=== PATIENT | male | born 1960 | race Caucasian/White ===

== ENCOUNTER 2017-07-05 13:47 | Emergency (ER) | payer MEDICARE, OTHER ==
[~2017-07-05] VITALS: Ht 177.8 cm; Wt 102.4 kg
[~2017-07-05 13:47] MED LIST: ASPI81TA82 PO; MYCO360 PO; TACR1
[2017-07-05 13:56] VITALS: BP 173/98; PULSE 71; RESP 18; TEMP 98.7; O2SAT 97
[2017-07-05] MEDS ORDERED: TACR5CAP PO (14:08)
[2017-07-05] MEDS ORDERED: VENTAER INH (14:08)
[2017-07-05] MEDS ORDERED: SYMB160A INH (14:08)
[2017-07-05] MEDS ORDERED: MYCO1TAB2 PO (14:08)
[2017-07-05 14:52] LABS: AUTOMATED NEUTROPHIL # 3.4 TH/MM3 (1.8-7.7); BASOPHIL % 0.6 % (0.0-2.0); EOSINOPHIL # 0.1 TH/MM3 (0-0.4); EOSINOPHIL % 3.2 % (0.0-4.0); HEMATOCRIT 41.9 % (39.0-51.0); HEMOGLOBIN 14.2 GM/DL (13.0-17.0); LYMPH % 12.2 % (9.0-44.0); LYMPHOCYTE # 0.5 TH/MM3 (1.0-4.8); MEAN CELL VOLUME 109.1 FL (80.0-100.0); MEAN CORPUSCULAR HGB CONC 33.9 % (32.0-36.0); MEAN PLATELET VOLUME 8.9 FL (7.0-11.0); MONOCYTE # 0.3 TH/MM3 (0-0.9); PLATELET COUNT 146 TH/MM3 (150-450); RED BLOOD COUNT 3.84 MIL/MM3 (4.50-5.90); WHITE BLOOD COUNT 4.3 TH/MM3 (4.0-11.0)
--- NOTE | 2017-07-05 14:57 | PD ---
HPI Chief Complaint: Skin Problem Time Seen by Provider: 14:18 Travel History International Travel<30 days: No Contact w/Intl Traveler<30days: No Traveled to known affect area: No History of Present Illness HPI This is a 56-year-old male with history of renal transplant 2006 on immunosuppressants with possible infection over the right elbow. He denies fever or chills. He reports approximately one month ago he developed a small break in the skin over the elbow where he had a large callus. He then developed painless swelling of the elbow. [facility] and started on antibiotics. He is unsure of the antibiotic but reports the area spontaneously drained clear yellow fluid and the swelling reduced. He reports this morning he awoke with right elbow swelling and came in for evaluation. He reports no pain currently. The area spontaneously drained clear yellow fluid from the wound which decreased his discomfort immediately. Symptoms severity is mild. Aggravated by palpating the area. He has full range of motion of the elbow. PFSH Past Medical History Narrative Medical Polycystic renal disease with kidney transplant, COPD, [place] Cancer: No Cardiovascular Problems: Yes (NH 2011) COPD: Yes Diminished Hearing: No Endocrine: No Genitourinary: Yes Hypertension: Yes Musculoskeletal: No Neurologic: No Renal Failure: Yes (TRANSPLANT 2006) Sleep Apnea: Yes Tetanus Vaccination: > 5 Years Influenza Vaccination: No ?: Not Past Surgical History Abdominal Surgery: No Cardiac Surgery: Yes (CATH) Ear Surgery: No Endocrine Surgery: No Eye Surgery: No Genitourinary Surgery: No Gynecologic Surgery: No Oral Surgery: No Thoracic Surgery: No Other Surgery: Yes (bilateral nephrectomy with transplant 2006) Social History Alcohol Use: Yes (SOCIALLY) Tobacco Use: Yes (1/2) Substance Use: No Allergies-Medications (Allergen,Severity, Reaction): Uncoded Allergies: GORE NEGRITA (Allergy, Unknown, 01/01/16) Reported Meds & Prescriptions Reported Meds & Active Scripts Active Keflex (Cephalexin) 500 Mg Capsule 500 Mg PO Q6H 14 Days Bactrim DS (Sulfamethoxazole-Trimethoprim) 800-160 Mg Tab 1 Tab PO BID 14 Days Reported Ventolin Hfa 18 GM Inh (Albuterol Sulfate) 90 Mcg/Act Aer 1 Puff INH Q4H PRN Symbicort Inh (Budesonide/Formoterol Fumarate) 160-4.5 Mcg/Act Aero 2 Puff INH Q12HR Tacrolimus 5 Mg Cap 5 Mg PO Q12H Mycophenolic Acid (Mycophenolate Sodium) 360 Mg Tab 1 Mg PO BID Review of Systems Except as stated in HPI: all other systems reviewed are Neg General / Constitutional: No: Fever Eyes: No: Visual changes HENT: No: Headaches Cardiovascular: No: Chest Pain or Discomfort Respiratory: No: Shortness of Breath Gastrointestinal: No: Abdominal Pain Genitourinary: No: Dysuria Musculoskeletal: No: Pain Physical Exam Narrative GENERAL: Alert and well-appearing 56-year-old male SKIN: 0.5 cm open shallow wound over the R olecranon HEAD: Normocephalic. EYES: No scleral icterus. No injection or drainage. NECK: Supple, trachea midline. No JVD or lymphadenopathy. CARDIOVASCULAR: Regular rate and rhythm without murmurs, gallops, or rubs. RESPIRATORY: Breath sounds equal bilaterally. No accessory muscle use. GASTROINTESTINAL: Abdomen soft, non-tender, nondistended. MUSCULOSKELETAL: No cyanosis. Right upper extremity: 0.5 cm open wound over the R olecranon with surrounding very faint erythema. + Swelling of the olecranon bursa. No warmth. No tenderness. Patient can flex and extend the elbow without difficulty. 2+ distal pulses. Brisk cap refill. BACK: Nontender without obvious deformity. No CVA tenderness. Data Data Last Documented VS Vital Signs Date Time Temp Pulse Resp B/P (MAP) Pulse Ox O2 Delivery O2 Flow Rate FiO2 07/05/17 13:56 98.7 71 18 173/98 (123) 97 Orders Orders Basic Metabolic Panel (Bmp) (07/05/17 14:24) Complete Blood Count With Diff (07/05/17 14:24) Blood Culture (07/05/17 14:24) Wound Culture And Gram Stain (07/05/17 14:24) Iv Access Insert/Monitor (07/05/17 14:24) Lactic Acid Sepsis Protocol (07/05/17 14:24) Elbow, Complete (4 Vws) (07/05/17 ) Prothrombin Time / Inr (Pt) (07/05/17 14:28) Act Partial Throm Time (Ptt) (07/05/17 14:28) Labs Laboratory Tests Test 07/05/17 14:30 White Blood Count 4.3 TH/MM3 Red Blood Count 3.84 MIL/MM3 Hemoglobin 14.2 GM/DL Hematocrit 41.9 % Mean Corpuscular Volume 109.1 FL Mean Corpuscular Hemoglobin 37.0 PG Mean Corpuscular Hemoglobin Concent 33.9 % Red Cell Distribution Width 13.0 % Platelet Count 146 TH/MM3 Mean Platelet Volume 8.9 FL Neutrophils (%) (Auto) 76.0 % Lymphocytes (%) (Auto) 12.2 % Monocytes (%) (Auto) 8.0 % Eosinophils (%) (Auto) 3.2 % Basophils (%) (Auto) 0.6 % Neutrophils # (Auto) 3.4 TH/MM3 Lymphocytes # (Auto) 0.5 TH/MM3 Monocytes # (Auto) 0.3 TH/MM3 Eosinophils # (Auto) 0.1 TH/MM3 Basophils # (Auto) 0.0 TH/MM3 CBC Comment DIFF FINAL Differential Comment Blood Urea Nitrogen 19 MG/DL Creatinine 0.93 MG/DL Random Glucose 98 MG/DL Calcium Level 8.7 MG/DL Sodium Level 139 MEQ/L Potassium Level 4.1 MEQ/L Chloride Level 106 MEQ/L Carbon Dioxide Level 25.7 MEQ/L Anion Gap 7 MEQ/L Estimat Glomerular Filtration Rate 84 ML/MIN Lactic Acid Level 0.8 mmol/L MDM Medical Decision Making Medical Screen Exam Complete: Yes Emergency Medical Condition: Yes Differential Diagnosis Bursitis, Cellulitis, unlikely septic joint Narrative Course 56-year-old male with recurrent inflamed bursa to the right olecranon. His been ongoing for month. He reports symptom improvement since last night. No fever or chills. Nontoxic appearing. CBC shows no leukocytosis. Lactic acid 0.8. Blood cultures and wound culture pending. X-ray shows no joint effusion but nonspecific slight soft tissue swelling over the olecranon. The case was discussed findings physician Dr. Joy who evaluated the patient himself. He agrees that this appears to be noninfectious olecranon bursitis with small open wound of the elbow. Given his history he will be put on antibiotics and instructed to follow-up with orthopedist. Strict return precautions were discussed. This was discussed at length with patient who agrees to this plan. Per patient's request he would like to not be admitted. Diagnosis Primary Impression: Bursitis Qualified Codes: M70.21 - Olecranon bursitis, right elbow Referrals: Maria Ines Rowley MD, Srinivasa MD Orthopedist Additional Instructions: Antibiotic as directed. Follow-up with orthopedic Return to emergency department if he developed new or worsening symptoms. This would include fever, chills, increasing pain, increasing redness. Scripts Cephalexin (Keflex) 500 Mg Capsule 500 MG PO Q6H for Infection for 14 Days, #56 CAP 0 Refills Prov: Nano Horton 07/05/17 Sulfamethoxazole-Trimethoprim (Bactrim DS) 800-160 Mg Tab 1 TAB PO BID for Infection for 14 Days, #28 TAB 0 Refills Prov: Nano Horton 07/05/17 Disposition: 01 DISCHARGE HOME Condition: Stable Nano Horton Jul 05, 2017 14:57
[2017-07-05 15:03] LABS: BICARBONATE 25.7 MEQ/L (21.0-32.0); CALCIUM 8.7 MG/DL (8.5-10.1)
[2017-07-05 15:07] LABS: CREATININE 0.93 MG/DL (0.60-1.30)
--- NOTE | 2017-07-05 15:18 | RADRPT ---
EXAM DATE/TIME: 07/05/2017 14:56 [facility] COMPARISON: No previous studies available for comparison. INDICATIONS : Right elbow pain and swelling. No known injury. Patient states there was an opening on his skin that started to swell and drained today. MEDICAL HISTORY : None. SURGICAL HISTORY : None. ENCOUNTER: Initial ACUITY: 1 month PAIN SCORE: 2/10 LOCATION: Right elbow. FINDINGS: Multiple view examination of the right elbow demonstrates no joint effusion, or fracture. There is so ft tissue swelling along the olecranon process. The osseous structures are in normal alignment. Bony mineralization is normal. A few small surgical clips are seen in the soft tissues. Otherwise, no oth er foreign bodies are seen. CONCLUSION: Nonspecific soft tissue swelling along the olecranon process. Fernie Whiteside MD on July 05, 2017 at 15:14 Board Certified Radiologist. This report was verified electronically.
[2017-07-05] MEDS ORDERED: CEPH-460 PO (15:40)
[2017-07-05] MEDS ORDERED: BACT800T5 PO (15:40)
[2017-07-05 16:11] LABS: PROTHROMBIN TIME - PATIENT 10.4 SEC (9.8-11.6)
== END 2017-07-05 16:26 | disposition home or self-care (01) ==
LOC: PHEFT 13:47
DX: M70.21 Olecranon bursitis, right elbow (principal); I12.9 Hypertensive chronic kidney disease with stage 1 through stage 4 chronic kidney disease, or unspecified chronic kidney disease; N18.9 Chronic kidney disease, unspecified; G47.30 Sleep apnea, unspecified; J44.9 Chronic obstructive pulmonary disease, unspecified; I25.2 Old myocardial infarction; F17.200 Nicotine dependence, unspecified, uncomplicated; Z94.0 Kidney transplant status
CPT/HCPCS: 73080; 80048; 83605; 85025; 85610; 85730; 87040; 87070; 87205; 99284

== ENCOUNTER 2017-07-18 10:03 | Inpatient (IN) | payer MEDICARE, OTHER ==
[~2017-07-18] VITALS: Ht 177.8 cm; Wt 102.9 kg
[~2017-07-18 10:03] MED LIST changes: -ASPI81TA82 PO; +BACT800T5 PO; +CEPH-460 PO; +MYCO1TAB2 PO; -MYCO360 PO; +SYMB160A INH; -TACR1; +TACR5CAP PO; +VENTAER INH
[2017-07-18] MEDS ORDERED: SODIUM CHLORID 0.9% 500 ML IV PRN (10:45)
[2017-07-18] MEDS ORDERED: POVIDONE IODINE 5% (ANTISEPSIS KIT) 4 APPLICATIONS EACH NARE PRN (10:45)
[2017-07-18] MEDS ORDERED: METOPROLOL TARTRATE 25 MG TAB PO PRN (10:45)
[2017-07-18] MEDS ORDERED: LACTATED RINGER'S 1000 ML IV PRN (10:45)
[2017-07-18] MEDS ORDERED: CHLORHEXIDINE GLUCONATE 2 % 1 PACK (2 CLOTHS) TOPICAL PRN (10:45)
[2017-07-18] MEDS ORDERED: INSULIN HUMAN REGULAR 1,000 UNITS/10 ML VIAL SQ PRN (10:45)
[2017-07-18] MEDS ORDERED: POVIDONE IODINE 7.5% SCRUB 118 ML BOTTLE TOPICAL SCH (11:00)
[2017-07-18 11:23] LABS: AUTOMATED NEUTROPHIL # 3.5 TH/MM3 (1.8-7.7); BASOPHIL % 0.6 % (0.0-2.0); EOSINOPHIL # 0.2 TH/MM3 (0-0.4); EOSINOPHIL % 3.7 % (0.0-4.0); HEMATOCRIT 41.5 % (39.0-51.0); HEMOGLOBIN 14.2 GM/DL (13.0-17.0); LYMPH % 13.9 % (9.0-44.0); LYMPHOCYTE # 0.7 TH/MM3 (1.0-4.8); MEAN CELL VOLUME 112.2 FL (80.0-100.0); MEAN CORPUSCULAR HEMOGLOBIN 38.5 PG (27.0-34.0); MEAN CORPUSCULAR HGB CONC 34.3 % (32.0-36.0); MONO % 8.8 % (0.0-8.0); MONOCYTE # 0.4 TH/MM3 (0-0.9); PLATELET COUNT 180 TH/MM3 (150-450); RED CELL DISTRIBUTION WIDTH 13.8 % (11.6-17.2); WHITE BLOOD COUNT 4.8 TH/MM3 (4.0-11.0)
[2017-07-18 11:30] LABS: ALKALINE PHOSPHATASE 73 U/L (45-117); TOTAL BILIRUBIN ADULT 0.2 MG/DL (0.2-1.0); TOTAL PROTEIN 7.1 GM/DL (6.4-8.2)
[2017-07-18 11:43] LABS: ALBUMIN 3.5 GM/DL (3.4-5.0); ALT (GPT) 29 U/L (12-78); AST (GOT) 21 U/L (15-37); BLOOD UREA NITROGEN 18 MG/DL (7-18); CALCIUM 8.7 MG/DL (8.5-10.1); CHLORIDE 108 MEQ/L (98-107); CREATININE 1.15 MG/DL (0.60-1.30); GLOMERULAR FILTRATION RATE 66 ML/MIN (>89); GLUCOSE,RANDOM 103 MG/DL (74-106); SODIUM (NA) 139 MEQ/L (136-145)
[2017-07-18] MEDS ORDERED: LIDOCAINE HCL 1% PF 5 ML SYRINGE OTHER ONE (12:00)
[2017-07-18] MEDS ORDERED: PROPOFOL 200 MG/20 ML AMP IV ONE (12:00)
[2017-07-18] MEDS ORDERED: GENTAMICIN SULFATE 80 MG/2 ML VIAL ONE (13:26)
[2017-07-18] MEDS ORDERED: BUPIVACAINE HCL PF 0.5% 30 ML VIAL ONE (13:36)
[2017-07-18] MEDS ORDERED: PROPOFOL 200 MG/20 ML AMP ONE (14:14)
[2017-07-18] MEDS ORDERED: ceFAZolin INJ 1,000 MG VIAL ONE (14:37)
[2017-07-18] MEDS: DEXT 5%-NACL 0.45% 1000 ML INJ 1,000 ML IV SCH (15:13)
[2017-07-18] MEDS ORDERED: DO NOT ADM ANY ANTICOAGULANT DRUGS PRN (15:14)
[2017-07-18] MEDS ORDERED: diphenhydrAMINE HCL 25 MG CAP PO PRN (15:15)
[2017-07-18] MEDS ORDERED: NALOXONE HCL 0.4 MG/ML AMP IV PUSH PRN (15:15)
[2017-07-18] MEDS ORDERED: Post-op Orders (for Pharmacy) XX ONE (15:15)
[2017-07-18] MEDS ORDERED: ALBUTEROL SULFATE 90 MCG/ACT HFA 8 GM INHALER INH PRN (15:15)
[2017-07-18] MEDS ORDERED: traMADol HCL 50 MG TAB PO PRN ×2 (15:15→16:15)
--- NOTE | 2017-07-18 15:37 | MP ---
cc: Leonel Doan MD DATE OF OPERATION: 07/18/2017 PREOPERATIVE DIAGNOSIS: Infected olecranon bursa, right elbow. POSTOPERATIVE DIAGNOSIS: Infected olecranon bursa, right elbow. OPERATIVE PROCEDURE: 1. Excision olecranon bursa, right elbow. 2. Debridement. 3. Application of wound vacuum-assisted closure. SURGEON: Leonel Doan MD ANESTHESIA: Axillary block. TECHNIQUE: After induction of axillary block, patient was brought to the operating room where he had a right elbow and right upper extremity thoroughly prepped with Hibiclens and draped in routine fashion. A vertical incision was made on the back of the elbow over the olecranon extending 4 cm proximal and distal to the sinus tract, and the sinus tract was excised full thickness. Skin flaps were raised, and the olecranon bursa was excised in toto. Part of the bursa resection sent for microbiology for Gram stain, culture, aerobic, anaerobic, AFB and fungal. The rest was sent to pathology in formalin. The wound was irrigated with saline solution, followed by application of wound VAC. Wound VAC was noted to be functioning well when we got done. The patient tolerated the procedure well. COMPLICATIONS: None. POSTOPERATIVE CONDITION: Satisfactory. PROGNOSIS: Depending on the microbiology results, I may bring him back to the OR as early as Tuesday afternoon to do a secondary closure. MD COLEEN Winkler/ARI , 03:22 PM , 03:36 PM
[2017-07-18] MEDS: CLINDAMYCIN INJ 600 MG in SODIUM CHLORIDE 0.9% INJ 50 ML IV SCH ×2 (19:01→23:29)
[2017-07-18] MEDS: TACROLIMUS 5 MG CAP PO SCH (19:01)
[2017-07-18 20:00] VITALS: BP 149/87; PULSE 69; RESP 18; TEMP 98.1; O2SAT 93
[2017-07-18] MEDS ORDERED: MYCOPHENOLATE SODIUM 360 MG DELAYED RELEASE TAB PO SCH (21:00)
[2017-07-18] MEDS: DOCUSATE SODIUM 50 MG/SENNA 8.6 MG TAB PO SCH (21:07)
--- NOTE | 2017-07-18 22:46 | EKG ---
Date Performed: 07/18/2017 Time Performed: 10:27:40 PTAGE: 56 years EKG: Sinus rhythm MARKED LEFT AXIS DEVIATION NONSPECIFIC ST ELEVATION ABNORMAL ECG PREVIOUS TRACING : 07/18/2011 16.23 Since the previous tracing, no significant change noted DOCTOR: Yi Middleton Interpretating Date/Time 07/18/2017 22:45:36
[2017-07-18] MEDS: BUDESONIDE-FORMOTEROL 160/4.5 MCG INHALER INH SCH (23:23)
[2017-07-19] VITALS: BP 127/76; PULSE 63; RESP 18; TEMP 97.8; O2SAT 92
[2017-07-19] MEDS: DEXT 5%-NACL 0.45% 1000 ML INJ 1,000 ML IV SCH ×3 (05:13→20:14)
[2017-07-19] MEDS: TACROLIMUS 5 MG CAP PO SCH ×2 (05:13→17:59)
--- NOTE | 2017-07-19 07:56 | PD.ORT.PN ---
Subjective Post Op Day #: 1 Pain Scale: 0 Subjective Remarks numbneess getting better Range of Motion good Objective Vitals Vital Signs Date Time Temp Pulse Resp B/P (MAP) Pulse Ox O2 Delivery O2 Flow Rate FiO2 07/19/17 00:00 97.8 63 18 127/76 (93) 92 07/18/17 20:00 98.1 69 18 149/87 (107) 93 07/18/17 16:30 97.1 61 16 136/79 (98) 92 Nasal Cannula 2 07/18/17 16:15 60 12 134/77 (96) 95 Nasal Cannula 2 07/18/17 16:00 61 12 125/74 (91) 93 Nasal Cannula 2 07/18/17 15:45 61 12 138/64 (88) 91 Nasal Cannula 2 07/18/17 15:30 64 12 122/64 (83) 91 Nasal Cannula 2 07/18/17 15:14 97.1 73 16 122/64 (83) 91 Nasal Cannula 2 07/18/17 11:05 98.5 68 16 178/97 (124) 100 I/O 07/18/17 07/18/17 07/18/17 07/19/17 07/19/17 07/19/17 07:00 15:00 23:00 07:00 15:00 23:00 Intake Total 200 ml 1000 ml Output Total 0 ml Balance 200 ml 1000 ml Intake IV Total 200 ml 1000 ml Output Drainage Total 0 ml Result Diagram: 07/18/17 1055 07/18/17 1055 Objective Remarks A,A, and O Dressings intact, VAC working Assessment & Plan Ortho Post Op Day #: 1 Problem List: Assessment and Plan Check micro at 24 hours Decide return to OR after that Leonel Doan MD Jul 19, 2017 07:56
[2017-07-19 08:00] VITALS: BP 130/79; PULSE 66; RESP 18; TEMP 97.9; O2SAT 94
[2017-07-19] MEDS: BUDESONIDE-FORMOTEROL 160/4.5 MCG INHALER INH SCH ×2 (08:32→20:14)
[2017-07-19] MEDS: CLINDAMYCIN INJ 600 MG in SODIUM CHLORIDE 0.9% INJ 50 ML IV SCH ×2 (08:33→15:16)
[2017-07-19] MEDS: DOCUSATE SODIUM 50 MG/SENNA 8.6 MG TAB PO SCH ×2 (08:34→20:13)
[2017-07-19 12:00] VITALS: BP 146/84; PULSE 69; RESP 18; TEMP 98.6; O2SAT 97
[2017-07-19] MEDS: MYCOPHENOLATE SODIUM 360 MG DELAYED RELEASE TAB PO SCH ×2 (12:17→20:13)
[2017-07-19 16:00] VITALS: BP_SYST 126; BP_DIAS 70; BP_DIAS 82; PULSE 64; PULSE 71; RESP 18; TEMP 98.1; TEMP 98.6; O2SAT 96
[2017-07-19] MEDS: ACETAMINOPHEN/HYDROcodone 325 MG/5 MG TAB PO PRN ×2 (17:13→23:30)
[2017-07-19 20:00] VITALS: BP 127/77; PULSE 68; RESP 18; TEMP 97.8; O2SAT 97
[2017-07-20] VITALS: BP 131/82; PULSE 67; RESP 18; TEMP 97.8; O2SAT 96
[2017-07-20] MEDS: CLINDAMYCIN INJ 600 MG in SODIUM CHLORIDE 0.9% INJ 50 ML IV SCH ×3 (01:55→17:33)
[2017-07-20] MEDS ORDERED: SODIUM CHLORID 0.9% 500 ML IV PRN (03:30)
[2017-07-20] MEDS ORDERED: LACTATED RINGER'S 1000 ML IV PRN (03:30)
[2017-07-20] MEDS: TACROLIMUS 5 MG CAP PO SCH ×2 (05:17→17:33)
[2017-07-20] MEDS: DEXT 5%-NACL 0.45% 1000 ML INJ 1,000 ML IV SCH ×2 (05:20→17:33)
[2017-07-20] MEDS: ACETAMINOPHEN/HYDROcodone 325 MG/5 MG TAB PO PRN ×3 (05:20→20:30)
[2017-07-20 08:00] VITALS: BP 132/78; PULSE 63; RESP 18; TEMP 97.5; O2SAT 94
[2017-07-20 08:33] LABS: HEMATOCRIT 36.7 % (39.0-51.0); HEMOGLOBIN 12.6 GM/DL (13.0-17.0); MEAN CELL VOLUME 111.9 FL (80.0-100.0); MEAN CORPUSCULAR HEMOGLOBIN 38.4 PG (27.0-34.0); MEAN CORPUSCULAR HGB CONC 34.3 % (32.0-36.0); MEAN PLATELET VOLUME 9.2 FL (7.0-11.0); PLATELET COUNT 116 TH/MM3 (150-450); RED BLOOD COUNT 3.28 MIL/MM3 (4.50-5.90); RED CELL DISTRIBUTION WIDTH 13.6 % (11.6-17.2); WHITE BLOOD COUNT 2.4 TH/MM3 (4.0-11.0)
[2017-07-20] MEDS: MYCOPHENOLATE SODIUM 360 MG DELAYED RELEASE TAB PO SCH ×2 (09:00→20:29)
[2017-07-20] MEDS: DOCUSATE SODIUM 50 MG/SENNA 8.6 MG TAB PO SCH ×2 (09:00→20:29)
[2017-07-20] MEDS: BUDESONIDE-FORMOTEROL 160/4.5 MCG INHALER INH SCH ×2 (09:01→20:33)
[2017-07-20 09:06] LABS: BICARBONATE 24.1 MEQ/L (21.0-32.0); CALCIUM 8.4 MG/DL (8.5-10.1); CREATININE 1.16 MG/DL (0.60-1.30)
[2017-07-20] MEDS ORDERED: GENTAMICIN SULFATE 80 MG/2 ML VIAL ONE (11:21)
[2017-07-20] MEDS ORDERED: DEXAMETHASONE SOD PHOS 4 MG/ML VIAL IV ONE (12:00)
[2017-07-20] MEDS ORDERED: LIDOCAINE HCL 1% PF 5 ML SYRINGE OTHER ONE (12:00)
[2017-07-20] MEDS ORDERED: PROPOFOL 200 MG/20 ML AMP IV ONE (12:00)
[2017-07-20] MEDS ORDERED: ONDANSETRON HCL 4 MG/2 ML VIAL IV ONE (12:00)
[2017-07-20] MEDS ORDERED: DO NOT ADM ANY ANTICOAGULANT DRUGS PRN (12:40)
[2017-07-20] MEDS ORDERED: ONDANSETRON HCL 4 MG/2 ML VIAL IV PUSH PRN (12:45)
[2017-07-20] MEDS ORDERED: ACETAMINOPHEN/HYDROcodone 325 MG/5 MG TAB PO PRN ×2 (12:45)
[2017-07-20] MEDS ORDERED: MORPHINE SULFATE 4 MG/ML INJ IV PUSH PRN (12:45)
[2017-07-20] MEDS ORDERED: MIDAZOLAM HCL 2 MG/2 ML VIAL ONE (12:47)
[2017-07-20] MEDS ORDERED: *morphine SULFATE 4 MG/ML PERIprocedure ONLY ONE ×2 (12:48→13:00)
[2017-07-20] MEDS ORDERED: *diphenhydrAMINE HCL 50 MG/ML VIAL PERIprocedural Use ONLY ONE (12:55)
--- NOTE | 2017-07-20 13:09 | MP ---
cc: Leonel Doan MD DATE OF OPERATION: 07/20/2017 PREOPERATIVE DIAGNOSIS: Two days post-excision of infected olecranon bursa and application of wound VAC. POSTOPERATIVE DIAGNOSIS: Two days post-excision of infected olecranon bursa and application of wound VAC. OPERATIVE PROCEDURE: Removal of wound VAC right elbow and wound closure after debridement. SURGEON: Dr. Doan ANESTHESIA: General. TECHNIQUE: After induction of general anesthesia, wound VAC was removed. The wound looks clean. The right upper extremity and the wound thoroughly prepped with Hibiclens and draped in routine fashion. Some of the unhealthy-appearing subcutaneous tissue and also entire skin edges on both sides were excised. Wound was irrigated with 500 mL of saline with gentamicin in it. Hemostasis obtained with cautery. Wound closed in a single layer of interrupted vertical mattress 3-0 nylon sutures. A 1/4-inch Hemovac drain was left in the subcutaneous space and brought out through a stab incision. Dressings were applied with Xeroform, 4 x 4's, ABD, Sof-Rol and an Yevgeniy bandage. The patient was transferred to the recovery room in satisfactory condition. The patient tolerated the procedure well. TRANSFUSIONS AND COMPLICATIONS: None. POSTOPERATIVE CONDITION: Satisfactory. PROGNOSIS: Good. The patient's culture report is negative at 48 hours of tissue obtained on Tuesday. We will continue IV antibiotics until tomorrow and then discharge him home most likely on Keflex 500 mg q. 8 hourly for a week. MD COLEEN Winkler/BISHOP , 12:48 PM , 01:08 PM
[2017-07-20 16:00] VITALS: BP 125/60; PULSE 68; RESP 18; TEMP 97.5; O2SAT 94
[2017-07-20 20:00] VITALS: BP 133/82; PULSE 52; RESP 18; TEMP 98; O2SAT 95
[2017-07-21] VITALS: BP 147/86; PULSE 63; RESP 18; TEMP 97.8; O2SAT 92
[2017-07-21] MEDS: CLINDAMYCIN INJ 600 MG in SODIUM CHLORIDE 0.9% INJ 50 ML IV SCH ×3 (01:13→17:00)
[2017-07-21] MEDS: ACETAMINOPHEN/HYDROcodone 325 MG/5 MG TAB PO PRN ×3 (03:58→17:22)
[2017-07-21] MEDS: DEXT 5%-NACL 0.45% 1000 ML INJ 1,000 ML IV SCH ×2 (03:59→13:13)
[2017-07-21 04:00] VITALS: BP 139/83; PULSE 62; RESP 18; TEMP 98.1; O2SAT 92
[2017-07-21] MEDS: TACROLIMUS 5 MG CAP PO SCH (05:20)
[2017-07-21 08:00] VITALS: BP 155/81; PULSE 75; RESP 17; TEMP 97.5; O2SAT 92
--- NOTE | 2017-07-21 08:34 | HHI.FF ---
Face to Face Verification Diagnosis: (1) excision infected olecronon bursa right elbow Nursing Nursing: Dressing changes Dressing Changes: 4x4s (change dressing 3 days a week, clean with alcohol, apply 4 x 4 s , ABD pad and clarisse) I have seen patient Calos Chen on 07/21/17. My clinical findings support the need for the requested home health care services because: Infection w/ risk of complications I certify that my clinical findings support that this patient is homebound because: Post-op weakness Unsafe to leave home unassisted Leonel Doan MD Jul 21, 2017 08:34
[2017-07-21] MEDS: MYCOPHENOLATE SODIUM 360 MG DELAYED RELEASE TAB PO SCH (08:47)
[2017-07-21] MEDS: BUDESONIDE-FORMOTEROL 160/4.5 MCG INHALER INH SCH (08:47)
[2017-07-21] MEDS: DOCUSATE SODIUM 50 MG/SENNA 8.6 MG TAB PO SCH (08:48)
[2017-07-21 12:00] VITALS: BP 135/81; PULSE 64; RESP 18; TEMP 98.9; O2SAT 93
[2017-07-21 16:00] VITALS: BP 137/79; PULSE 64; RESP 18; TEMP 98.6; O2SAT 94
[2017-07-21] MEDS ORDERED: CEPH-460 PO (17:01)
[2017-07-21] MEDS ORDERED: TRAM50 PO (17:01)
--- NOTE | 2017-07-21 18:29 | MD ---
cc: Leonel Doan MD DATE OF DISCHARGE: 07/21/2017 ADMITTING DIAGNOSES: 1. Infected olecranon bursa, right elbow. 2. Renal transplant status. DISCHARGE DIAGNOSES: 1. Infected olecranon bursa, right elbow. 2. Renal transplant status. ADDITIONAL DIAGNOSIS: Thrombocytopenia and leukopenia. HISTORY OF PRESENT ILLNESS: History consisted of draining olecranon bursa, right elbow for the last 2 months, treated by emergency rooms and urgent care centers with cultures and antibiotics with persistent drainage. He did not have any injury. He saw me for the first time a week ago, at which time the sinus tract was closed and therefore, the olecranon bursa was aspirated. Then, we got some serosanguineous fluid, which was sent for testing, but unfortunately, discarded by the lab because the culture tube had an date on it. At any rate, the cultures done at the hospital recently were negative for any bacteria. The patient was brought to the hospital and had laboratory studies and EKG done and taken to the OR on the day of surgery when the olecranon bursa was excised and the wound left open and covered with a wound VAC. He was placed on Ancef and clindamycin. The tissue obtained at surgery showed no growth at 72 hours. Gram stain only showed rare WBCs, no bacteria. The patient was taken back to the operating room on 07/20/2017, at which time the wound VAC was removed and the wound looked very healthy. Therefore, some debridement of skin and soft tissue was carried out, followed by closure with nylon sutures with a Drumright drain underneath. His wound examined today. Drumright drain removed. Wound looked satisfactory. Dry dressings applied. He is being discharged with home health care being arranged for dressing changes. He will see me in the office in 10 days for followup. We will see him sooner if there is any pain or undue drainage. DISCHARGE MEDICATIONS: Tramadol 50-100 mg twice a day as needed for pain with 500 mg Tylenol as well as Keflex 500 mg 3 times a day. LABORATORY AND DIAGNOSTIC DATA: The patient's EKG is reported to show left axis deviation and nonspecific ST-T wave changes. His chemistry is within normal limits, except for some borderline changes. His CBC on admission showed some thrombocytopenia. Followup CBC yesterday showed some worsening or thrombocytopenia, but still platelet count well above 100,000. There is some fall in hemoglobin and hematocrit, which is to be expected, and some leukopenia also. The patient was advised of these changes. There is really no need to keep him in the hospital for this. DISCHARGE CONDITION: Stable, satisfactory, improved. MD COLEEN Winkler/BISHOP , 05:10 PM , 06:28 PM
== END 2017-07-21 17:34 | disposition home health service (06) | DRG 464 ==
LOC: HSDI 10:03 → EDSTATUS 14:00 → N07B 17:11
PROVIDERS: ADMIT Orthopaedic Surgery; ATTEND Orthopaedic Surgery
PROC: 0MT30ZZ Resection of Right Elbow Bursa and Ligament, Open Approach (ICD-10-PCS; 2017-07-18)
PROC: 0JBD0ZZ Excision of Right Upper Arm Subcutaneous Tissue and Fascia, Open Approach (ICD-10-PCS; principal; 2017-07-20 11:46)
DX: M71.121 Other infective bursitis, right elbow (principal); Z94.0 Kidney transplant status; D69.6 Thrombocytopenia, unspecified; D72.819 Decreased white blood cell count, unspecified; I25.10 Atherosclerotic heart disease of native coronary artery without angina pectoris; I25.2 Old myocardial infarction; J43.9 Emphysema, unspecified; E66.9 Obesity, unspecified; F17.200 Nicotine dependence, unspecified, uncomplicated; Z68.32 Body mass index [BMI] 32.0-32.9, adult
CPT/HCPCS: 80048; 80053; 85025; 85027; 85652; 87015; 87070; 87102; 87116; 87176; 87205; 87206; 88304; 93005; 94150; J0690; J1100; J1200; J1580; J2250; J2270; J2405; J3010; J7120; J7507; J7518